=== PATIENT | male | born 1960 | race Caucasian/White ===

== ENCOUNTER → 2016-11-01 | Outpatient (CLI) | payer MEDICAID | LOC: FIMAGING 13:40 | PROVIDERS: ATTEND Psychiatry & Neurology Neurology | DX: M99.73 Connective tissue and disc stenosis of intervertebral foramina of lumbar region (principal); M12.88 Other specific arthropathies, not elsewhere classified, other specified site; R15.9 Full incontinence of feces; R32 Unspecified urinary incontinence; Z98.890 Other specified postprocedural states ==

== ENCOUNTER → 2016-11-23 | Outpatient (CLI) | payer MEDICAID | LOC: FIMAGING 10:02 | PROVIDERS: ATTEND Physician Assistant | DX: R10.11 Right upper quadrant pain (principal); E66.9 Obesity, unspecified; K76.0 Fatty (change of) liver, not elsewhere classified; K76.89 Other specified diseases of liver ==

== ENCOUNTER → 2017-03-02 | Outpatient (CLI) | payer MEDICAID ==
[~2017-03-02] MED LIST: GADOBUTROL 10 ML VIAL IVP ONE
== END ==
LOC: FIMAGING 06:47
PROVIDERS: ATTEND Physician Assistant
DX: R93.8 Abnormal findings on diagnostic imaging of other specified body structures (principal); K76.0 Fatty (change of) liver, not elsewhere classified; D35.00 Benign neoplasm of unspecified adrenal gland
CPT/HCPCS: A9585